=== PATIENT | female | born 1980 | race Caucasian/White ===

== ENCOUNTER 2018-05-22 15:22 | Inpatient (IN) ==
[2018-05-22] MEDS ORDERED: NS 1,000 ML IV ONE (17:58)
--- NOTE | 2018-05-22 18:02 | Emergency Department Report ---
SOB HPI - General Chief Complaint: Shortness of Breath/Dyspnea Stated Complaint: can't catch breath Time Seen by Provider: 05/22/18 17:49 Source: patient Mode of arrival: ambulatory Limitations: no limitations - History of Present Illness Pt has 4 day history of SOB with exertion, but no CAD, COPD/asthma. Pt was seen in [facility] and had blood test that showed she "is not anemic." Patient was given a breathing treatment, despite having no wheezes or difficulty moving air. Patient had no relief. Patient saw her primary physician earlier today, who is quite concerned about pulmonary embolism. It [place] patient was told that she was constipated, despite having normal bowel movements. She is medications to help with constipation, has had positive bowel movements, no relief. - Related Data Home Medications Medication Instructions Recorded Confirmed Empagliflozin [Jardiance] 25 mg PO DAILY 05/22/18 05/22/18 Metformin [Glucophage] 1,000 mg PO HS 05/22/18 05/22/18 Multivit-Min/Iron/Folic/Htd499 1 tab PO DAILY 05/22/18 05/22/18 [Hair, Skin and Nails Tablet] Multivitamin [One Daily 1 tab PO DAILY 05/22/18 05/22/18 Multivitamin] Ondansetron HCl [Zofran] 4 mg PO Q6H PRN 05/22/18 05/22/18 Allergies Allergy/AdvReac Type Severity Reaction Status Date / Time No Known Allergies Allergy Verified 05/22/18 15:56 Review of Systems All systems: reviewed and negative except as stated [facility] Medical History (Last Reviewed 03/23/18 @ 14:46 by REYNALDO Rodas) Diabetes mellitus (Chronic Medical) Eczema (Chronic Medical) DJD (degenerative joint disease) (Chronic Medical) Diabetes (Chronic Medical) Surgical History: * Section. *Cholecystectomy. *Left Breast Biopsy ( benign). *EGD Family History: Family History (Last Reviewed 03/23/18 @ 14:46 by REYNALDO Rodas) Father Dialysis patient Heart problem Diabetes Maternal Grandfather Hyperlipidemia Heart attack High blood pressure Diabetes - Social History Smoking status: Former smoker second hand exposure: Yes Substance use type: does not use, former substance user, marijuana Alcohol intake: never Alcohol intake frequency: does not drink Housing: house Household members: children Current occupational status: student Physical Exam - Limitations Limitations: no limitations - General General appearance: alert, other (patient has normal blood pressure, normal temperature, normal O2 saturations on room air. Patient is mildly tachycardic and has slight dry mouth.) - Normal Exams: Head:: Normocephalic without trauma Eyes:: Pupils are PERRLA w/ EOMI, No scleral icterus, irritation, or foreign bodies noted ENMT:: No facial trauma, nasal exudates, pharyngeal erythema, or exudates are noted Neck:: Full range of motion, without adenopathy, JVD, bruits or thyromegaly Chest/Respirations:: Clear all franklin, with good airflow, and symmetry bilaterally Cardiovascular:: Regular rate and rhythm, without murmur or gallop, Pulses 2+ all extremities, capillary refill, <2 seconds all extremities Abdomen:: Bowel sounds positive, soft, non-tender, non-distended, no hepatosplenomegaly, masses or bruits noted Lymphatic:: No lymphadenopathy, or lymphedema noted Musculoskeletal:: No tenderness, or deformity noted, good range of motion, all extremities Integumentary:: No rashes, hives, or bruising noted, hair and nails, without abnormality Neurological:: Patient is alert, and oriented, cranial nerves, motor/sensory/ cerebellar, exams w/o gross deficits, to observation Psychiatric:: Patient exhibits, appropriate attention, emotion and affect Course Vital Signs Temperature 97.8 F 05/22/18 15:25 Pulse Rate 114 H 05/22/18 15:25 Respiratory Rate 20 05/22/18 15:25 Blood Pressure 138/80 05/22/18 15:25 Pulse Oximetry 98 05/22/18 15:25 Temperature 97.6 F 05/22/18 17:50 Pulse Rate 109 H 05/22/18 17:50 Respiratory Rate 20 05/22/18 17:50 Blood Pressure 157/89 H 05/22/18 17:50 Pulse Oximetry 100 05/22/18 17:50 Shortness of Breath/Dyspnea - [facility] Narrative Medical decision making narrative: UA/P - concentrated with ketones 3+ EKG - Sinus tach without ischemia, ectopy, or infarction Troponin - n ProBNP - n Chest CT/PE - CBC - hemoconcentrated, otherwise normal CMP -minor electrolyte abnormalities consistent with dehydration/volume depletion - with abnormally low CO2 of 6. Will check ABG ABG - acidosis with pH 7.189, PCO2 15.4, and HCO3 5.9. Case is discussed with total hospitalist Dr. Perez We will get plasma lactate and beta hydroxybutyrate levels, and will discuss the patient further Lactate is pending, but the patient's BHB significantly elevated at 5.7. We will admit the patient inpatient to ICU for ketoacidosis and dehydration - Lab Data Result diagrams: 05/22/18 18:25 05/22/18 18:25 Disposition Clinical Impression: Ketoacidosis, Dehydration Disposition: [address] [facility] Acute Care Condition: Improved Prescriptions: No Action Ondansetron HCl [Zofran] 4 mg PO Q6H PRN PRN Reason: Nausea Metformin [Glucophage] 1,000 mg PO HS Multivitamin [One Daily Multivitamin] 1 tab PO DAILY Multivit-Min/Iron/Folic/Fgy530 [Hair, Skin and Nails Tablet] 1 tab PO DAILY Empagliflozin [Jardiance] 25 mg PO DAILY Referrals: Willy Mane DO [Primary Care Provider] - - Seen By: physician
[2018-05-22] MEDS ORDERED: SALINE FLUSH 10ml SYRINGE ONE (18:42)
[2018-05-22] MEDS ORDERED: IOHEXOL 350mg/ml 75ml INJECTION ONE (18:42)
[2018-05-22] MEDS ORDERED: KETOROLAC 30 MG/ML INJECTION IVP ONE (19:57)
[2018-05-22] MEDS ORDERED: NS 1,000 ML IV SCH (20:45)
[2018-05-22] MEDS ORDERED: INSULIN ASPART 100unit/ml INJECTION SQ PRN (21:52)
[2018-05-22] MEDS ORDERED: D5-1/2NS 1,000 ML IV SCH (21:52)
[2018-05-22] MEDS ORDERED: ACETAMINOPHEN 650 MG SUPPOSITORY PR PRN (21:52)
[2018-05-22] MEDS ORDERED: MORPHINE SULFATE 2mg INJECTION IVP PRN (21:52)
[2018-05-22] MEDS ORDERED: DEXTROSE 50% SYRINGE 50ml (1 AMP) IVP PRN (21:52)
[2018-05-22] MEDS: PANTOPRAZOLE 40 MG INJECTION IVP SCH (22:00)
[2018-05-22] MEDS: HYDROCODONE/APAP 5mg/325mg TABLET PO PRN (22:00)
[2018-05-22 22:04] VITALS: BMI 35.2
[2018-05-22] MEDS ORDERED: D5-1/2NS with KCL 20mEq 1,000 ML IV SCH (23:00)
[2018-05-22] MEDS ORDERED: ALBUTEROL/IPRATROPIUM 2.5mg-0.5mg/3ml NEB AEROSOL PRN (23:50)
[2018-05-23] MEDS ORDERED: MAG-AL + SIM ORAL LIQUID 30ml PO PRN (00:31)
[2018-05-23] MEDS ORDERED: INSULIN REGULAR, HUMAN 100 UNIT in NS 100 ML IV PRN (02:41)
[2018-05-23] MEDS ORDERED: SODIUM BICARBONATE 100 MEQ in D5W 1,000 ML IV SCH (02:45)
--- NOTE | 2018-05-23 04:55 | History & Physical Report ---
History of Present Illness Date: 05/24/18 Chief complaint: shortness of breath HPI: this is a 38 y/o female with dm 2 and eczema. She has a history of morbid obesity and over the past years has gone through two stages of loosing almost 100#. Most recently over the past 2 weeks she has been observing a very low carbohydrate diet. She has noted over the past 4 days that she has increased dyspnea. With any activity she gets remarkably tired. She presented to a local urgent care center in [facility] a couple of days ago and the workup was unremakable. (included EKG , labs, and breathing tx). The pateint continued to be short of breath and presents to the ED tonight. The ED did a CT angio of the chest that was neg for acute disease. Labs done demonstrated a remarkable gap metabolic acidosis. The serum BHBA signficantly elevated. Blood sugar was essentially normal. It would appear that the patient's low carbohydrate diet has ppt a starvation ketoacidosis. She will be admitted into the ICU for managment Review of Systems Review of systems: no headache, no fever, chills or sweats, no neck or jaw pain, short of breath without ortopnea, no pnd, the patient has no abodmen pain, slight nausea, no emesis, no change in bm, no focal neuro complaints, no skin rashes, 12 point ROS otherwise negative except for outlined above. Past Medical History Medical History: Medical History (Last Reviewed 03/23/18 @ 14:46 by REYNALDO Rodas) Diabetes mellitus (Chronic) Eczema (Chronic) DJD (degenerative joint disease) Diabetes Surgical History: * Section. *Cholecystectomy. *Left Breast Biopsy ( benign). *EGD. Cholesystectomy Family History: Family History (Last Reviewed 03/23/18 @ 14:46 by REYNALDO Rodas) Father Dialysis patient Heart problem Diabetes Maternal Grandfather Hyperlipidemia Heart attack High blood pressure Diabetes Family History: As Above - Social History Smoking status: Former smoker Medications Home Medications Medication Instructions Recorded Confirmed Type Empagliflozin [Jardiance] 25 mg PO DAILY 05/22/18 05/22/18 History Metformin [Glucophage] 1,000 mg PO HS 05/22/18 05/22/18 History Multivit-Min/Iron/Folic/Qbn508 1 tab PO DAILY 05/22/18 05/22/18 History [Hair, Skin and Nails Tablet] Multivitamin [One Daily 1 tab PO DAILY 05/22/18 05/22/18 History Multivitamin] Ondansetron HCl [Zofran] 4 mg PO Q6H PRN 05/22/18 05/22/18 History Allergies Allergy/AdvReac Type Severity Reaction Status Date / Time No Known Allergies Allergy Verified 05/22/18 15:56 Exam Vital Signs: Temperature 97.6 F 05/22/18 23:02 Pulse Rate 90 05/23/18 04:00 Respiratory Rate 15 05/23/18 02:00 Blood Pressure 101/61 05/23/18 00:00 Pulse Oximetry 97 05/23/18 04:46 Telemetry Rhythm: Sinus Rhythm Height/Weight/BMI: Height 1.71 m Weight 103.6 kg Body Mass Index 35.2 - Constitutional Present: moderate distress - Routine HEENT Exam Head: Present: normocephalic, atraumatic Eye: Present: EOMI ENT: Present: mucous membranes dry - Routine Neck Exam Present: supple - Routine Respiratory Exam Present: CTA bilaterally - Routine Cardiovascular Exam Present: RRR, no murmur - Routine Abdominal Exam Present: soft, normoactive bowel sounds, non distended, non tender - Routine Extremities Exam Present: no edema, full ROM - Routine Skin Exam Present: intact, dry - Routine Neurological Exam Present: alert, oriented X3, moving all extremities, normal tone, vision grossly intact, hearing grossly intact, normal speech Results - Labs CBC & Chem 7: 05/23/18 05:03 05/24/18 06:01 Labs: reviwed and will be discussed below CT PE without acute process - ECG Data Tracing #1 sinus, poor r wave progression, right axis deviation. low voltge Assessment and Plan Assessment and Plan: 1. starvation ketoacidosis acute POA: started d5 1/2 ns with 20 kcl. initally with serial bmp. serum hco3 acutally worsened. elected to start a HcO3 gtt after ABG demonstrated pH less than 7.2. Patient is not responding well to glucse and fluids and will go ahead and add low dose insulin gtt. 2. DM2 chronic POA: pt is not in DKA. will monitor sugars with correctional plan. glucaphage held 2/2 iv contrast 3. DVT ppx SCD, lovenox 4. gastric ppx : ppi DVT Prophylaxis: SCD's GI Prophylaxis: Protonix Resuscitation Status: Full Code - Time spent with patient Time with patient PN: 50 minutes - Physician Narrative Narrative: Date: 05/23/18 Time: 446 Seen and examined patient on same day as the above note. Agree with history, physical, assessment and plan. Comprehensive physical findings correlate to the above note. HPI: type II diabetic woman with 4 days worsening dyspnea, dizziness, nausea, lightheadedness and fatigue. No symptoms like this prior. No medication changes. She is dieting on a almost totally abstinent carbohydrate diet. She is diabetic type II. She's never had an episode like this before PMH/SH/FH: as per above. She has had her gallbladder removed ROS: no further information from 10 system review Exam: Gen.:no apparent distress, obese and pleasant HEENT: normocephalic atraumatic, oral mucosa moderately dry neck: no lymphadenopathy no jugular venous distention respiratory: there to auscultation bilaterally with good excursion cardiovascular: cardiovascular S1 S2 no adventitious murmurs rubs or gallops abdomen/GI: no appreciable tenderness and any of the 4 quadrants. Bowel sounds are good extremities: good peripheral perfusion with no edema skin/integument: no significant injuries or edema neuro: alert and oriented times 3. No focal deficits appreciable psych: mood and affect or appropriate Labs: reviewed and noting the closing metabolic anion gap imaging: no acute processes assessment and plan: metabolic acidosis: not a true diabetic ketoacidosis and the strictest sense. I' ve discussed this with Dr. Perez and I agree that this is a very atypical presentation of a will topic diet in a type II diabetic augmenting a metabolic anion gap. At this time where discontinuing the insulin drip as well as the D5 fluids but may restart if required Diabetes type II. Transition the patient back to an oral diet but will press reasonable amount of carbohydrates at this time and observe her response obesity: patient is very conscientiously dieting and for this reason we have requested dietary to work on education Documented on Dragon speech to text. Efforts to correct speech recognition errors performed, but variation may exist Hospital Course Summary Disclaimer: The visit summary below is not to be considered part of the above Progress Note.
[2018-05-23] MEDS: SODIUM BICARBONATE 100 MEQ, POTASSIUM CHLORIDE INJ 20 MEQ in D5W 1,000 ML IV SCH ×2 (06:53→14:06)
[2018-05-23] MEDS: HYDROCODONE/APAP 5mg/325mg TABLET PO PRN (07:48)
--- NOTE | 2018-05-23 07:56 | CT Scan Report ---
Indication: SOB with exertion, tachycardia PROCEDURE: CT angio pulm emboli: Encounter: Initial Comparison: None Technique: Axial CT pulmonary angiographic phase images were performed through the chest after the administration of intravenous contrast. Coronal and Sagittal MIP reconstructed images were created and reviewed. Automated Exposure Control and Iterative Reconstruction dose reducing techniques were utilized. Contrast: Omnipaque 350 70 mL Findings: Pulmonary arteries: Exam is diagnostic to the subsegmental pulmonary arterial level. No filling defects identified to suggest a pulmonary embolus. Other findings: Lungs are clear. No pneumonia, pleural effusion or pneumothorax. The central airways are patent. No axillary or mediastinal adenopathy. Heart size is normal. No pericardial effusion. Upper abdomen is negative for acute process. Impression: Normal exam. There is a preliminary report by [facility] radiologic. .
[2018-05-23] MEDS: ENOXAPARIN 40 MG/0.4 ML INJECTION SQ SCH (08:22)
[2018-05-23] MEDS ORDERED: POLYETHYL GLYCOL 3350 17gm PACKET PO SCH (09:00)
[2018-05-23] MEDS ORDERED: ACETAMINOPHEN 325 MG TABLET PO PRN (11:42)
[2018-05-23] MEDS ORDERED: KETOROLAC 15 MG/ML INJECTION IM PRN (13:03)
[2018-05-23] MEDS ORDERED: BISACODYL 10 MG SUPPOSITORY RECTALLY PRN (21:18)
[2018-05-23] MEDS: PANTOPRAZOLE 40 MG INJECTION IVP SCH (21:24)
[2018-05-24] MEDS ORDERED: MAGNESIUM CITRATE 296ml PO ONE (07:13)
[2018-05-24] MEDS: ENOXAPARIN 40 MG/0.4 ML INJECTION SQ SCH (09:05)
[2018-05-24] MEDS: EMPAGLIFLOZIN 10 MG TABLET PO SCH ×2 (09:06)
[2018-05-24] MEDS: POLYETHYL GLYCOL 3350 17gm PACKET PO SCH ×2 (09:06→21:29)
--- NOTE | 2018-05-24 09:48 | XRay Report ---
Indication: abd pain/constipation PROCEDURE: XR KUB: Encounter: Initial Comparison: None Findings: The bowel gas pattern is nonobstructive and nonspecific. Gas is seen in nondilated small and large bowel to the level of the rectum. Large amount of stool is seen throughout the colon. The bony structures are grossly unremarkable. Impression: Nonobstructive nonspecific bowel gas pattern. Increased colonic stool burden. .
[2018-05-24] MEDS: ONDANSETRON 4 MG/2 ML INJECTION IVP PRN (10:17)
[2018-05-24] MEDS ORDERED: FLEET PHOSPHO - SODA ENEMA 133ml PR PRN (11:37)
--- NOTE | 2018-05-24 14:20 | Consultation ---
DATE OF CONSULT 05/24/2018 REASON FOR CONSULTATION Ketoacidosis. HISTORY OF PRESENT ILLNESS Ms. Jarvis is a 38-year-old female with a 22-year history of type 2 diabetes mellitus that has been in poor control. She has been trying very hard to lose weight. She has succeeded in losing 100 pounds in the past few years. Most recently she started on a ketogenic diet several weeks ago. She discontinued taking some of her medication at that time but continued to take metformin 1000 mg b.i.d. and Jardiance 25 mg daily. She came to the emergency department because of shortness of breath that was getting progressively worse along with polyuria and polydipsia. In the emergency department she was found to be in ketoacidosis with an anion gap of 22 although her blood sugar was not elevated. She was thought to have had starvation ketoacidosis and was admitted to the CCU. She was treated briefly with some IV insulin but mostly with IV fluids. Her ketoacidosis resolved yesterday and her anion gap dropped to 14. Her metformin and Jardiance had been discontinued upon her hospitalization. This morning her anion gap is still only 15 although her CO2 is only 12. Her nausea and vomiting have been improved. ALLERGIES None known. PAST MEDICAL HISTORY Remarkable for: 1. Type 2 diabetes mellitus. 2. Polycystic ovarian syndrome. 3. Hyperlipidemia. 4. She did have diabetic ketoacidosis when she was younger but not in quite some time. 5. She is status post and tubal ligation. She checks her blood sugars six times per day and usually runs over 200. FAMILY HISTORY Remarkable for diabetes mellitus, CHF, chronic kidney disease, hypertension and diverticulosis. SOCIAL HISTORY The patient does not smoke tobacco nor drink alcohol. REVIEW OF SYSTEMS Negative for fever or chills. No retinopathy. She has some dysphagia swallowing bread. Reports dry mouth. She has a pruritic rash on her arms and legs for several days. She has had some nausea and vomiting which is better now. She denies edema. She has had nocturia and polyuria. She notes fatigue and some weakness. She has had hirsutism. She denies any temperature intolerance. PHYSICAL EXAMINATION VITAL SIGNS: Afebrile. Blood pressure 123/76, pulse 95. GENERAL: Obese female, alert, oriented and in no acute distress. HEENT: Unremarkable. Oral mucosa is moist. SKIN: Shows a maculopapular red rash on extremities. NECK: Without thyromegaly. LUNGS: Clear. HEART: Regular rate and rhythm without murmur. ABDOMEN: Soft, nontender with normal bowel sounds. EXTREMITIES: Show trace pedal edema. Peripheral pulses are 2+ symmetrically. LABS Sodium 144, potassium 3.8, chloride 117, CO2 12, BUN 11, creatinine 0.5, glucose 116. TSH 0.87. ASSESSMENT 1. Diabetic ketoacidosis, mostly resolved. The patient was on a ketogenic diet which can create some acidosis although not usually ketoacidosis. However , while taking metformin the acidosis can be worsened. This did result in ketoacidosis but was not apparent due to the relatively normal glucose level. However, this is because Jardiance was masking hyperglycemia by allowing glucose to escape in the urine. Thus we have ketoacidosis due to the use of metformin while on a ketogenic diet masked by Jardiance. With the anion gap having closed to 15 or less her normal kidney function should take care of the remaining hyperchloremic acidosis which is frequently seen in the treatment phase of DKA. As long as she remains off metformin she should be able to continue controlling hyperglycemia with Jardiance and a little better balanced diet. 2. Type 2 diabetes mellitus, poorly controlled by history. Clearly she will benefit by further weight loss, although a ketogenic diet may not be her best alternative for this. She has been seen by the dietitian who has discussed with her adding some carbohydrate back into the balance of her diet. RECOMMENDATIONS I have spoken at length with the patient this morning regarding the avoidance of metformin while on a ketogenic diet. She will resume taking Jardiance. She should balance her diet better with some carbohydrate. If additional medication is needed to control her glucose until she loses enough weight for her insulin sensitivity to allow good control with Jardiance, then basal insulin would be an appropriate addition. Thank you very much for asking my assistance on this interesting case. I will continue to follow the patient with you while she remains in the hospital. CRAIG
[2018-05-24] MEDS: IBUPROFEN 600 MG TABLET PO PRN ×2 (14:44→21:26)
[2018-05-24] MEDS ORDERED: LACTULOSE 20 GM/30 ML ORAL LIQUID PO PRN (15:30)
[2018-05-24] MEDS ORDERED: INSULIN REGULAR, HUMAN 100 UNIT in NS 100 ML IV PRN (16:20)
--- NOTE | 2018-05-24 17:05 | Progress Note ---
- Date 05/24/18 Subjective: Ana was seen this morning at which time she described feeling slightly winded with ongoing nausea and abdominal cramping due to constipation. She reports her last bowel movement was more than a week ago other than a small amount of liquid stool on the date of admission. She denies dysuria and is voiding well. She's had no fever or chills. She denied headache. She spoke with the dietitian yesterday and indicated intent to increase carbohydrates in her diet to minimize ketosis. Objective Vital signs: Temperature 97.0 F 05/24/18 15:00 Pulse Rate 90 05/24/18 15:00 Respiratory Rate 20 05/24/18 12:00 Blood Pressure 123/76 05/24/18 11:36 Pulse Oximetry 98 05/24/18 15:00 I/O 3284/5300 NAD, alert, fluent speech Conjugate gaze, conjunctiva clear, sclera anicteric, oropharynx clear Respirations nonlabored, good airflow, breath sounds clear Regular rhythm, S1-S2 Abdomen soft, slightly distended and mild diffuse tenderness, bowel sounds present Extremities without edema Skin without rash or ulceration MAEW Rhythm: Normal Sinus Rhythm Height/Weight/BMI: Height 1.71 m Weight 103.646 kg Body Mass Index 35.2 Results - Labs CBC & Chem 7: 05/23/18 05:03 05/24/18 14:47 Labs: Earlier today electrolytes notable for chloride 117 and bicarbonate 12; blood sugars have ranged from 117-189 over the past 24 hours - ABG Interpretation ABG results: 05/22/18 05/23/18 05/23/18 19:34 02:48 07:02 ABG pH 7.189 L* 7.166 L* 7.269 L ABG pCO2 15 L* 21 L* 24 L ABG pO2 113.8 H 101.7 H 100.9 H ABG HCO3 5.9 L 7.5 L 10.8 L ABG Total CO2 6.3 L 8.1 L 11.5 L ABG O2 Saturation 97.4 96.1 97.1 ABG Base Excess -19.8 L -19.0 L -14.1 L - Imaging and Cardiology Abdominal x-ray Status: image reviewed by me (KUB with nonspecific bowel gas pattern and increased stool content throughout the colon) Assessment and Plan (1) Ketoacidosis Current visit: Yes Status: Acute (2) Diabetes mellitus Current visit: No Status: Chronic Assessment and Plan: Impression: Diabetic ketoacidosis Diabetes mellitus, type II-A1c 7.4% 05/15/18 Nausea/vomiting Dehydration Obstipation Hypophosphatemia Polycystic ovarian syndrome Hyperlipidemia Plan: Dr. Sagastume consulted this morning; I spoke with him after he evaluated the patient described complex development of DKA due to development of ketoacidosis on ketotic diet in conjunction with metformin use with Jardiance precluding development of hyperglycemia due to hyperglucoseurea. Acidosis improved initially with insulin drip but bicarbonate is dropping again the course of the day today and insulin drip is being resumed with standard DKA orders. By mouth meds will be continued-confirmed with Dr. Sagastume. Significant obstipation over the past week reported, may in part be due to dehydration with increased urine output. Continue fiber supplement, Dulcolax suppository tried earlier today with minimal result, fleets enema available for prn use; lactulose being started as needed. Repeat labs per DKA protocol at 8 PM tonight. - Physician Narrative Narrative: Date: 05/24/18 Time: 1702 Hospital Course Summary Disclaimer: The visit summary below is not to be considered part of the above Progress Note. Hospital Course: 05/23/18 Admitted with ketoacidosis due to ketotic diet/diabetes. Initially treated with fluids/bicarbonate without improvement and subsequently converted to insulin drip and DKA protocol. Late in the day able to transition to oral diet with increased carbohydrate content. Dietary consult initiated. 05/24/18 Dr. Sagastume consulted this morning; I spoke with him after he evaluated the patient described complex development of DKA due to development of ketoacidosis on ketotic diet in conjunction with metformin use with Jardiance precluding development of hyperglycemia due to hyperglucoseurea. Acidosis improved initially with insulin drip but bicarbonate is dropping again the course of the day today and insulin drip is being resumed with standard DKA orders. By mouth meds will be continued-confirmed with Dr. Sagastume. Significant obstipation over the past week reported, may in part be due to dehydration with increased urine output. Continue fiber supplement, Dulcolax suppository tried earlier today with minimal result, fleets enema available for prn use; lactulose being started as needed. Repeat labs per DKA protocol at 8 PM tonight.
[2018-05-24] MEDS: POTASSIUM CHLORIDE INJ 20 MEQ, POTASSIUM PHOSPHATE (mEq) 20 MEQ in D5-1/2NS 1,000 ML IV SCH (17:09)
[2018-05-24] MEDS: HYDROCODONE/APAP 5mg/325mg TABLET PO PRN (18:34)
[2018-05-25] MEDS: POTASSIUM CHLORIDE INJ 20 MEQ, POTASSIUM PHOSPHATE (mEq) 20 MEQ in D5-1/2NS 1,000 ML IV SCH ×2 (00:09→06:23)
[2018-05-25] MEDS: HYDROCODONE/APAP 5mg/325mg TABLET PO PRN ×2 (02:02→10:11)
[2018-05-25] MEDS: ONDANSETRON 4 MG/2 ML INJECTION IVP PRN (05:17)
[2018-05-25] MEDS: IBUPROFEN 600 MG TABLET PO PRN ×2 (05:58→13:21)
[2018-05-25 07:41] VITALS: TEMP 97.8
--- NOTE | 2018-05-25 07:54 | Endocrinology Progress Note ---
Subjective Principal diagnosis: Type 2 diabetes mellitus Interval history: Still uncomfortable with no BM despite lactulose and mag citrate. Was able to come off IV insulin drip several hours ago after receiving it overnight for lapsing back into DKA with bicarb back down to 8. Exam Vital signs: Temperature 97.8 F 05/25/18 07:40 Pulse Rate 71 05/25/18 04:00 Respiratory Rate 16 05/25/18 04:00 Blood Pressure 114/72 05/24/18 23:07 Pulse Oximetry 96 05/25/18 04:00 Inpatient Medications: Generic Name Dose Route Start Last Admin Trade Name Freq PRN Reason Stop Dose Admin Acetaminophen 500 mg 05/22/18 21:52 Tylenol SD Q5H PRN Pain Acetaminophen 650 mg 05/23/18 11:42 05/23/18 11:45 Tylenol PO 650 mg Q6H PRN Administration Pain Acetaminophen/Butalbital/Caffeine 1 each 05/23/18 13:03 05/23/18 14:06 Fioricet PO 1 each Q4H PRN Administration Headache Hydrocodone Bitart/Acetaminophen 1 tab 05/22/18 21:52 05/25/18 02:02 [place] 5/325 PO 1 tab Q6H PRN Administration Pain Al Hydroxide/Mg Hydroxide 30 ml 05/23/18 00:31 05/23/18 00:45 Maalox Plus PO 30 ml Q6H PRN Administration Indigestion Albuterol/Ipratropium 3 ml 05/22/18 23:50 Duoneb AEROSOL Q2H PRN Bisacodyl 10 mg 05/23/18 21:18 05/23/18 21:24 Dulcolax RECTALLY 10 mg DAILY PRN Administration Constipation Dextrose 25 ml 05/22/18 21:52 D50%W IVP PRN PRN Hypoglycemia Empagliflozin 25 mg 05/24/18 08:00 05/24/18 09:06 Jardiance PO 25 mg DAILY ENEIDA Administration Enoxaparin Sodium 40 mg 05/23/18 09:00 05/24/18 09:05 Lovenox SQ 40 mg DAILY ENEIDA Administration Insulin Human Regular 100 unit 101 mls @ 10.46 mls/hr 05/24/18 16:20 07:10 / Sodium Chloride IV Infused .Q9H40M PRN Titration Protocol 0.1 UNIT/KG/HR Ibuprofen 600 mg 05/24/18 14:40 05/25/18 05:58 Motrin PO 600 mg Q6H PRN Administration Pain Lactulose 20 gm 05/24/18 15:30 05/24/18 18:24 Lactulose PO 20 gm QID PRN Administration Constipation Morphine Sulfate 1 - 2 mg 05/22/18 21:52 Morphine Sulf 2 Mg Inj IVP Q2H PRN Pain Ondansetron HCl 4 mg 05/22/18 21:52 05/25/18 05:17 Zofran IVP 4 mg Q6H PRN Administration Nausea &/or vomiting Polyethylene Glycol 17 gm 05/24/18 09:00 05/24/18 21:29 Miralax PO Not Given BID ENEIDA Potassium Chloride 20 meq 05/23/18 08:00 05/24/18 18:34 K-Dur 20 Meq Tablet PO Not Given BIDWM ENEIDA Sodium Phosphate 1 enema 05/24/18 11:37 Fleet Enema SD DAILY PRN Discontinued Medications Generic Name Dose Route Start Last Admin Trade Name Freq PRN Reason Stop Dose Admin Sodium Chloride 1,000 mls @ 999.9 mls/hr 05/22/18 17:58 05/22/18 19:50 Normal Saline IV 05/22/18 18:57 Infused .Q1H ONE Infusion Sodium Chloride 1,000 mls @ 150 mls/hr 05/22/18 20:45 05/22/18 21:29 Normal Saline IV Infused .Q6H40M ENEIDA Infusion Dextrose/Sodium Chloride 1,000 mls @ 125 mls/hr 05/22/18 21:52 05/22/18 22:59 D5-1/2ns IV Infused .Q8H ENEIDA Infusion Potassium Chloride/Dextrose/Sod Cl 1,000 mls @ 125 mls/hr 05/22/18 23:00 03:10 D5-1/2ns With Kcl 20meq Premix IV Infused .Q8H ENEIDA Infusion Sodium Bicarbonate 100 meq/ 1,100 mls @ 150 mls/hr 05/23/18 02:45 05/23/18 06 :53 Dextrose IV Infused .Q7H20M ENEIDA Infusion Insulin Human Regular 100 unit 101 mls @ 10.46 mls/hr 05/23/18 02:41 14:53 / Sodium Chloride IV Infused .Q9H40M PRN Titration Protocol 0.1 UNIT/KG/HR Sodium Bicarbonate 100 meq/ 1,110 mls @ 150 mls/hr 05/23/18 06:00 05/23/18 14 :06 Potassium Chloride 20 meq/ IV Not Given Dextrose .Q7H24M ENEIDA Potassium Chloride 20 meq/ 1,014.5455 mls @ 150 mls/hr 05/24/18 16:30 07:10 Potassium Phosphate 20 meq/ IV Infused Dextrose/Sodium Chloride .Q6H46M ENEIDA Infusion Insulin Aspart 1 - 5 unit 05/22/18 21:52 Novolog SQ SS PRN Hyperglycemia Protocol Ketorolac Tromethamine 30 mg 05/22/18 19:57 05/22/18 19:57 Toradol Inj IVP 05/22/18 19:58 30 mg O ONE Administration Ketorolac Tromethamine 15 mg 05/23/18 13:03 Toradol Inj IM 05/28/18 13:04 Q6H PRN Pain Magnesium Citrate 296 ml 05/24/18 07:13 05/24/18 09:05 Citrate Of Magnesia PO 05/24/18 07:14 296 ml ONCE ONE Administration Pantoprazole Sodium 40 mg 05/22/18 21:52 05/23/18 21:24 Protonix Iv IVP 40 mg Q24H ENEIDA Administration Polyethylene Glycol 17 gm 05/23/18 09:00 05/23/18 08:23 Miralax PO Not Given DAILY ENEIDA - Constitutional mild distress - Routine HEENT Exam Head: Present: normocephalic, atraumatic Eye: Present: EOMI, PERRL ENT: Present: mucous membranes moist - Routine Neck Exam Absent: thyromegaly - Routine Respiratory Exam Absent: dyspnea - Routine Cardiovascular Exam Present: RRR - Routine Abdominal Exam Present: soft, normoactive bowel sounds. Absent: tenderness - Routine Extremities Exam Absent: cyanosis, edema - Routine Skin Exam Present: dry, warm - Routine Neurological Exam Present: alert, oriented X3 - Routine Psychiatric Exam Present: normal affect, normal thought process, good insight, good judgment - Additional findings Additional findings: Laboratory Tests 05/25/18 06:06 Sodium 142 Potassium 3.8 Chloride 114 H Carbon Dioxide 17 L BUN 7.0 Creatinine 0.4 L Glucose 100 Assessment and Plan (1) DKA (diabetic ketoacidoses) Current visit: Yes Status: Resolved Anion gap has closed and bicarb is up to normal now. Insulin is no longer required. Should resume carb consistent diet while we observe glucose response. If necessary, Jardiance can be resumed. Continue to avoid metformin. (2) Type 2 diabetes mellitus without complications Current visit: Yes Status: Chronic Currently controlled well. Since she is going to still be trying to lose more weight we should only use weight negative antidiabetic medication, such as Jardiance, and only if hyperglycemia warrants it. (3) Constipation Current visit: Yes Status: Acute Resistant to treatment thus far. Further GI evaluation is indicated to rule out obstruction, motility disorder, etc.
[2018-05-25] MEDS: ENOXAPARIN 40 MG/0.4 ML INJECTION SQ SCH (09:30)
[2018-05-25] MEDS: POLYETHYL GLYCOL 3350 17gm PACKET PO SCH (09:31)
[2018-05-25] MEDS ORDERED: MAGNESIUM CITRATE 296ml PO ONE (12:51)
[2018-05-25 13:12] VITALS: BP 111/74
[2018-05-25] MEDS ORDERED: INSULIN ASPART 100unit/ml INJECTION SQ ONE (14:38)
--- NOTE | 2018-05-25 17:10 | Progress Note ---
- Date 05/25/18 Subjective: Ana reports minor nausea overnight with several very small bowel movements after Dulcolax and magnesium citrate but she continues to have abdominal cramping both due to obstipation and onset of menses yesterday. She denies dyspnea, palpitations, or fever. She is voiding without difficulty. She has chronic constipation but nothing like it's been for the last 10 days. Last colonoscopy was greater than 10 years ago and there is no family history of colon cancer. Insulin drip was discontinued early this morning and blood sugars have been modestly elevated requiring subcutaneous insulin at least once today. Objective Vital signs: Temperature 97.8 F 05/25/18 07:40 Pulse Rate 88 05/25/18 14:45 Respiratory Rate 27 H 05/25/18 14:45 Blood Pressure 111/74 05/25/18 11:38 Pulse Oximetry 100 05/25/18 14:45 NAD, alert Conjunctiva clear, sclera anicteric Respirations nonlabored, good airflow progressive clear Regular rhythm, S1-S2 Abdomen soft, mild generalized tenderness without guarding, bowel sounds present Extremities without edema Neuro-moving all extremities well Rhythm: Normal Sinus Rhythm Height/Weight/BMI: Height 1.71 m Weight 105 kg Body Mass Index 35.2 Results - Labs CBC & Chem 7: 05/25/18 02:13 05/25/18 14:01 Labs: Initial bicarbonate this morning was 17 with fasting blood sugar of 106. - ABG Interpretation ABG results: 05/22/18 05/23/18 05/23/18 19:34 02:48 07:02 ABG pH 7.189 L* 7.166 L* 7.269 L ABG pCO2 15 L* 21 L* 24 L ABG pO2 113.8 H 101.7 H 100.9 H ABG HCO3 5.9 L 7.5 L 10.8 L ABG Total CO2 6.3 L 8.1 L 11.5 L ABG O2 Saturation 97.4 96.1 97.1 ABG Base Excess -19.8 L -19.0 L -14.1 L Assessment and Plan (1) Ketoacidosis Current visit: Yes Status: Acute (2) Diabetes mellitus Current visit: No Status: Chronic Assessment and Plan: Impression: Diabetic ketoacidosis Diabetes mellitus, type II-A1c 7.4% 05/15/18 Nausea/vomiting Dehydration Obstipation Hypophosphatemia Polycystic ovarian syndrome Hyperlipidemia Plan: Insulin drip resumed yesterday after bicarbonate dropped; improved rapidly overnight and insulin again discontinued this morning. Bicarbonate down slightly this afternoon-continue to monitor closely. Pedal electrolytes in a.m. to clarify if bicarbonate is stable. Continue bowel regimen; if no improvement overnight will move to Gastrografin enema to exclude mass. Magnesium citrate being redosed today per patient request. DVT Prophylaxis: Lovenox Resuscitation Status: Full Code - Physician Narrative Narrative: Date: 05/25/18 Time: 1707 Hospital Course Summary Disclaimer: The visit summary below is not to be considered part of the above Progress Note. Hospital Course: 05/23/18 Admitted with ketoacidosis due to ketotic diet/diabetes. Initially treated with fluids/bicarbonate without improvement and subsequently converted to insulin drip and DKA protocol. Late in the day able to transition to oral diet with increased carbohydrate content. Dietary consult initiated. 05/24/18 Dr. Sagastume consulted this morning; I spoke with him after he evaluated the patient described complex development of DKA due to development of ketoacidosis on ketotic diet in conjunction with metformin use with Jardiance precluding development of hyperglycemia due to hyperglucoseurea. Acidosis improved initially with insulin drip but bicarbonate is dropping again the course of the day today and insulin drip is being resumed with standard DKA orders. By mouth meds will be continued-confirmed with Dr. Sagastume. Significant obstipation over the past week reported, may in part be due to dehydration with increased urine output. Continue fiber supplement, Dulcolax suppository tried earlier today with minimal result, fleets enema available for prn use; lactulose being started as needed. Repeat labs per DKA protocol at 8 PM tonight. 05/25/18 Insulin drip resumed yesterday after bicarbonate dropped; improved rapidly overnight and insulin again discontinued this morning. Bicarbonate down slightly this afternoon-continue to monitor closely. Pedal electrolytes in a.m. to clarify if bicarbonate is stable. Continue bowel regimen; if no improvement overnight will move to Gastrografin enema to exclude mass.
[2018-05-25 17:15] VITALS: PULSE 91; RESP 18; O2SAT 99
--- NOTE | 2018-05-25 22:44 | Discharge Summary ---
Discharge Information Date of admission: 05/22/18 21:25 Anticipated date of discharge: 05/25/18 Attending Physician: Kalyani Perez MD Primary care physician: Willy Mane DO Consults: Consulting Provider: Anuel Sagastume Reason For Exam: ketoacidosis - Discharge Diagnosis (1) Ketoacidosis Status: Acute (2) Diabetes mellitus Status: Chronic Diabetic ketoacidosis Diabetes mellitus, type II-A1c 7.4% 05/15/18 Nausea/vomiting Dehydration Obstipation Hypophosphatemia Polycystic ovarian syndrome Hyperlipidemia - Laboratory Labs: On admission 05/22/18: Hemoglobin 16.8, AB.189/15/113/5.9 on room air. HC03 6, glucose 117, liver enzymes normal, lactic acid 1.1, TSH 0.78 05/25/18 02:13 05/25/18 19:12 - Radiology Radiology: CTA chest pulmonary emboli protocol on 05/22/18: Normal exam-no PE or infiltrate or pleural effusion. KUB on 05/24/18: Nonobstructive/nonspecific bowel gas pattern, increased colonic stool burden. History of Present Illness HPI: This is a 38 y/o female with dm 2 and eczema. She has a history of morbid obesity and over the past years has gone through two stages of loosing almost 100#. Most recently over the past 2 weeks she has been observing a very low carbohydrate diet. She has noted over the past 4 days that she has increased dyspnea. With any activity she gets remarkably tired. She presented to a local urgent care center in [facility] a couple of days ago and the workup was unremakable. (included EKG , labs, and breathing tx). The pateint continued to be short of breath and presents to the ED tonight. The ED did a CT angio of the chest that was neg for acute disease. Labs done demonstrated a remarkable gap metabolic acidosis. The serum BHBA signficantly elevated. Blood sugar was essentially normal. It would appear that the patient's low carbohydrate diet has ppt a starvation ketoacidosis. She will be admitted into the ICU for managment Objective Vital signs: Temperature 97.8 F 05/25/18 07:40 Pulse Rate 91 05/25/18 16:45 Respiratory Rate 18 05/25/18 16:45 Blood Pressure 111/74 05/25/18 11:38 Pulse Oximetry 99 05/25/18 16:45 NAD, alert Conjunctiva clear, sclera anicteric Respirations nonlabored, good airflow progressive clear Regular rhythm, S1-S2 Abdomen soft, mild generalized tenderness without guarding, bowel sounds present Extremities without edema Neuro-moving all extremities well Rhythm: Normal Sinus Rhythm Height/Weight/BMI: Height 1.71 m Weight 105 kg Body Mass Index 35.2 Hospital Course This is a general summary of the patient's hospital course. For more details refer to the complete medical record. Hospital course: 05/23/18 Admitted with ketoacidosis due to ketotic diet/diabetes. Initially treated with fluids/bicarbonate without improvement and subsequently converted to insulin drip and DKA protocol. Late in the day able to transition to oral diet with increased carbohydrate content. Dietary consult initiated. 05/24/18 Dr. Sagastume consulted this morning; I spoke with him after he evaluated the patient described complex development of DKA due to development of ketoacidosis on ketotic diet in conjunction with metformin use with Jardiance precluding development of hyperglycemia due to hyperglucoseurea. Acidosis improved initially with insulin drip but bicarbonate is dropping again the course of the day today and insulin drip is being resumed with standard DKA orders. By mouth meds will be continued-confirmed with Dr. Sagastume. Significant obstipation over the past week reported, may in part be due to dehydration with increased urine output. Continue fiber supplement, Dulcolax suppository tried earlier today with minimal result, fleets enema available for prn use; lactulose being started as needed. Repeat labs per DKA protocol at 8 PM tonight. 05/25/18 Insulin drip resumed yesterday after bicarbonate dropped; improved rapidly overnight and insulin again discontinued this morning. Bicarbonate down slightly this afternoon-continue to monitor closely. Electrolytes repeated earlier this evening and bicarbonate has improved to 19- highest it's been during the hospitalization. Patient had several bowel movements later in the day after repeating magnesium citrate this morning. Need to maintain an aggressive bowel regimen discussed with the patient. Blood sugars have been modestly elevated off the insulin drip and off oral medications with glucoses of 193 and 192 after meals this evening. Resume Jardiance at 25 mg daily. Stable for discharge; have recommended follow-up with Dr. Mane in approximately one week or sooner if any recurrent symptoms. Additionally recommended she discuss chronic constipation at follow-up to determine if additional evaluation will be needed. Time spent with patient: discharge greater than 30 minutes Resuscitation Status: Full Code Discharge Plan - Discharge Disposition Discharge Date: 05/25/18 Disposition: 01 Discharged Home, Self-Care *Condition: Improved Reason For Visit (Visit label in EMR): ketoacidosis,dehydration - Discharge Medications *Discharge Medications: New Sennosides/Docusate Sodium [Senna-S Tablet] 2 each PO DAILY #100 tab PEG 3350 17gm PACKET [Miralax] 17 gm PO BID packet Continue Ondansetron HCl [Zofran] 4 mg PO Q6H PRN PRN Reason: Nausea Multivitamin [One Daily Multivitamin] 1 tab PO DAILY Multivit-Min/Iron/Folic/Nhl934 [Hair, Skin and Nails Tablet] 1 tab PO DAILY Empagliflozin [Jardiance] 25 mg PO DAILY Discontinued Metformin [Glucophage] 1,000 mg PO HS - Discharge Packet/Instructions *Diet: Diabetic diet, avoid strict ketogenic diet due to risk of diabetic ketoacidosis *Activity: As tolerate *Pain Management/Treatment: Ibuprofen or Tylenol as needed-follow package instructions *Wound Care: Not applicable Additional Instructions: Consider regular bowel regimen with a fiber supplement like MiraLAX (or Benefiber or Metamucil) 1-2 times daily in conjunction with Senokot as a bowel stimulant/stool softener--all can be purchased over-the- counter. May need further evaluation of chronic constipation by Dr. Mane. *Expected Signs/Symptoms: You may be more fatigued and achy after hospitalization and the metabolic abnormalities you've experienced, constipation *Notify Physician if: Vomiting, difficulty breathing. *During Business Hours Contact: Dr. Mane's office *After Business Hours Contact: Call [facility] at [phone] and ask that the on-call physician be paged *Pending Lab/Results: No Pending Lab - Referrals/Follow Up *Referrals/Follow Up: Willy Mane DO [Primary Care Provider] - 1 Week - Patient Handouts Patient Handouts: Diabetic Ketoacidosis (GEN) - Dismissal Complete Discharge Instructions are:: Complete Physician Narrative - Narrative Attestation Narrative: Date: 05/25/18 Time: 9810
== END 2018-05-25 20:40 | disposition home or self-care (01) | DRG 639 ==
LOC: ED 15:22 → SUATTDRO 21:25 → EDHOLD 21:25 → CCU 21:35 → MED 05-25 17:00
PROVIDERS: ADMIT Emergency Medicine; ATTEND Internal Medicine

== ENCOUNTER 2018-06-12 16:44 | Observation (INO) ==
[2018-06-12] MEDS ORDERED: SALINE FLUSH 10ml SYRINGE IVF PRN (16:51)
[2018-06-12] MEDS ORDERED: NS 1,000 ML IV ONE (16:51)
--- NOTE | 2018-06-12 16:53 | Emergency Department Report ---
General Adult HPI - General Chief complaint: Medical Emergency Stated complaint: SOA,DKA,low CO2 Time Seen by Provider: 06/12/18 16:51 Source: patient Mode of arrival: ambulatory Limitations: no limitations - History of Present Illness HPI narrative: Patient's 2-year-old female presents emergency room for evaluation of back pain and nausea. Patient had a similar episode to this approximately a month ago was admitted to the hospital for diabetic ketoacidosis. Patient that time was kept on her same medications, acid dumper felt that her medications were not causing the issue. Patient began feeling bad 2 days ago when to see her primary medical physician earlier today who obtained laboratories. Laboratories came back with signs of DKA so patient was referred to the ER for evaluation. - Related Data Home Medications Medication Instructions Recorded Confirmed Ascorbic Acid/Multivit-Min 1,000 mg PO DAILY 06/12/18 06/12/18 [Emergen-C 1,000 mg Packet] Digestive 8/L.acidoph/Pectin 1 each PO DAILY 06/12/18 06/12/18 [Digestive Enzymes Tablet] Multivit-Min/Iron/Folic/Bce964 1 each PO DAILY 06/12/18 06/12/18 [Hair, Skin and Nails Tablet] Multivitamin [One Daily] 1 each PO DAILY 06/12/18 06/12/18 Sennosides [Senokot] 8.6 mg PO DAILY 06/12/18 06/12/18 Glucophage (metformin) 1,000 mg 1,000 mg PO BID 06/20/18 tablet Previous Rx's Medication Instructions Recorded Januvia (sitagliptin) 100 mg tablet 100 mg PO DAILY #30 tab 06/20/18 Zoloft (sertraline) 50 mg tablet 50 mg PO .COMPLEX #60 tab 06/20/18 Allergies Allergy/AdvReac Type Severity Reaction Status Date / Time No Known Allergies Allergy Verified 06/20/18 10:13 Review of Systems Constitutional: Reports: weakness. Denies: fever, chills Eyes: Denies: eye pain, eye discharge, vision change ENT: Denies: ear pain, throat pain, dental pain Cardiovascular: Denies: chest pain, palpitations, dyspnea on exertion, orthopnea Respiratory: Denies: dyspnea, wheezes Gastrointestinal: Reports: abdominal pain. Denies: nausea, vomiting Genitourinary: Denies: dysuria, frequency Musculoskeletal: Denies: back pain Neurological: Denies: headache, weakness, numbness Endocrine: Denies: fatigue Hematological/Lymphatic: Denies: easy bleeding Allergic/Immunologic: Denies: facial swelling PFSH Patient Stated Medical History Diabetes Mellitus Type 2 Yes Other GI Yes: constipation Other Yes: breast biopsy Other Reproductive Yes: heavy menstural cycle Clinic Medical History (Last Reviewed 06/20/18 @ 10:14 by REYNALDO Yarbrough) Eczema (Chronic Medical) Obesity (BMI 30-39.9) (Acute Medical) PCOS (polycystic ovarian syndrome) (Acute Medical) Type 2 diabetes mellitus (Acute Medical) DJD (degenerative joint disease) (Chronic Medical) Surgical History: * Section. *Cholecystectomy. *Left Breast Biopsy ( benign). *EGD. Cholesystectomy Family History: Family History (Last Reviewed 06/20/18 @ 10:14 by REYNALDO Yarbrough) Father Dialysis patient Heart problem Diabetes Maternal Grandfather Hyperlipidemia Heart attack High blood pressure Diabetes - Social History Smoking status: Former smoker second hand exposure: Yes Substance use type: does not use, former substance user, marijuana Alcohol intake: never Alcohol intake frequency: does not drink Housing: house Household members: children Current occupational status: student Physical Exam - General General appearance: alert, in no apparent distress - Head Head exam: normocephalic - ENT ENT exam: Present: normal oropharynx, mucous membranes moist, TM's normal bilaterally - Neck Neck exam: Present: full ROM, trachea midline. Absent: tenderness - Chest Chest inspection: Present: symmetric chest wall rise. Absent: tenderness, rash - Respiratory Respiratory exam: Present: normal lung sounds bilaterally. Absent: respiratory distress, wheezes, stridor - Cardiovascular Cardiovascular exam: Present: regular rate, normal rhythm, normal heart sounds - Abdominal Exam Abdominal exam: Present: soft, distention, normal bowel sounds. Absent: tenderness - Skin Skin exam: Present: warm, dry - Neurological Exam Neurological exam: Present: alert, oriented X3 - Psychiatric Psychiatric exam: Present: normal affect, normal mood Course Vital Signs Temperature 98.3 F 06/12/18 16:47 Pulse Rate 96 06/12/18 16:47 Respiratory Rate 20 06/12/18 16:47 Blood Pressure 136/65 06/12/18 16:47 Pulse Oximetry 99 06/12/18 16:47 Temperature 97.2 F 06/13/18 08:15 Pulse Rate 84 06/13/18 13:00 Respiratory Rate 32 H 06/13/18 13:00 Blood Pressure 120/82 06/13/18 11:48 Pulse Oximetry 99 06/13/18 13:00 Medical Decision Making - MDM Narrative Medical decision making narrative: Discuss case with Dr. Mehta we have both reviewed prior laboratories. He will admit patient to the CCU for DKA - Medical Records Medical records reviewed: Yes: I reviewed the patient's medical records. - Lab Data Lab results reviewed: Yes: I reviewed the patient's lab results. Result diagrams: 06/13/18 04:17 06/13/18 04:17 Lab Results 06/12/18 06/12/18 06/12/18 Range/Units 16:50 17:08 17:08 VBG pH 7.261 L (7.310-7.410) Turbidity < 20 (0-20) Sodium 140 (136-146) MEQ/L Potassium 3.8 (3.6-5) MEQ/L Chloride 112 H (98-107) MEQ/L Carbon Dioxide 14 L (22-30) MEQ/L Anion Gap 14 (5-15) meq/L BUN 11.0 (7-17) MG/DL Creatinine 0.6 L (0.7-1.2) mg/dL Estimated Creat Clear 157 (>50) mL/min GFR Calculation 111 (>60) mL/min BUN/Creatinine Ratio 18 (6-26) RATIO Glucose 150 H (65-110) MG/DL Glucometer 152 (65-110) mg/dL Calculated Osmolality 271 (261-280) MOSM/KG Calcium 8.7 (8.4-10.2) MG/DL Icterus Index < 2 (0-7) Specimen Hemolysis < 15 (0-25) Disposition Clinical Impression: Ketoacidosis Disposition: 02 To [facility] Condition: Stable Time of Disposition: 17:38 - Seen By: physician
[2018-06-12] MEDS ORDERED: ONDANSETRON 4 MG/2 ML INJECTION IVP PRN (17:54)
--- NOTE | 2018-06-12 18:08 | History & Physical Report ---
History of Present Illness Date: 06/12/18 Chief complaint: Nausea, SOA HPI: Ana Jarvis is a 38 year old with type 2 DM. She has been on a low-carb, keto- type diet. She was hospitalized from 05/23-05/25/18 for DKA, and Dr. Sagastume stopped metformin, continued Jardiance 25 mg daily. She reports that she began feeling nauseated and slightly short of breath on 06/09/18. A friend told her that these symptoms could also come from dehydration, so over the next couple of days she pushed fluids. However, her symptoms worsened. She also described some dizziness/lightheadedness, especially with positional changes. She felt weak and fatigued. She has had some headaches and blurred vision. She had labs drawn per Dr. Mane on 06/12/18, showing ketoacidosis with CO2 of 12, gap 18, glucose 154. ABG showed a pH of 7.269. Her last A1c was 7.4% on 05/15/18. She was contacted at home and recommended for her to be evaluated in the ED. A venous pH was 7.261, accucheck 152. She was given 1L of NS. Dr. Donovan was notified , and the patient was admitted to the CCU for treatment of ketoacidosis. Review of Systems All systems PM: 10-point ROS was reviewed, no additional remarkable complaints except - Constitutional Constitutional: Present: headache(s). Absent: chills, fever(s) - EENMT Eyes: Present: blurry vision Nose: Absent: obstruction Mouth/Throat: Absent: sore throat - Cardiovascular Cardiovascular: Absent: palpitations Vascular: Absent: pedal edema - Respiratory Respiratory: Present: dyspnea. Absent: cough - Gastrointestinal Gastrointestinal: Present: nausea. Absent: abdominal pain, diarrhea, vomiting - Genitourinary Genitourinary: Absent: dysuria - Musculoskeletal Musculoskeletal: Present: back pain (low back) - Integumentary/Breasts Integumentary: Absent: rash - Neurological Neurological: Present: dizziness, headache(s), weakness. Absent: abnormal speech, focal weakness, frequent falls, numbness - Psychiatric Psychiatric: Absent: anxiety - Endocrine Endocrine: Absent: palpitations - Hematologic/Lymphatic Hematologic/Lymphatic: Absent: easy bleeding Past Medical History Medical History: Medical History (Last Updated 06/12/18 @ 18:20 by Sunita Lucero APRN) Eczema (Chronic) Obesity (BMI 30-39.9) PCOS (polycystic ovarian syndrome) Type 2 diabetes mellitus DJD (degenerative joint disease) Surgical History: * Section. *Cholecystectomy. *Left Breast Biopsy ( benign). *EGD. *Cholesystectomy Family History: Family History (Last Reviewed 06/12/18 @ 09:50 by Iva Kirkland Ebony) Father Dialysis patient Heart problem Diabetes Maternal Grandfather Hyperlipidemia Heart attack High blood pressure Diabetes Family History: As Above - Social History Smoking status: Former smoker Substance use type: does not use Medications Home Medications Medication Instructions Recorded Confirmed Type Ascorbic Acid/Multivit-Min 1,000 mg PO DAILY 06/12/18 06/12/18 History [Emergen-C 1,000 mg Packet] Digestive 8/L.acidoph/Pectin 1 each PO DAILY 06/12/18 06/12/18 History [Digestive Enzymes Tablet] Multivit-Min/Iron/Folic/Jzg324 1 each PO DAILY 06/12/18 06/12/18 History [Hair, Skin and Nails Tablet] Multivitamin [One Daily] 1 each PO DAILY 06/12/18 06/12/18 History Sennosides [Senokot] 8.6 mg PO DAILY 06/12/18 06/12/18 History Allergies Allergy/AdvReac Type Severity Reaction Status Date / Time No Known Allergies Allergy Verified 06/12/18 09:49 Exam Vital Signs: Temperature 98.3 F 06/12/18 16:47 Pulse Rate 92 06/12/18 17:30 Respiratory Rate 20 06/12/18 16:47 Blood Pressure 135/80 06/12/18 17:30 Pulse Oximetry 100 06/12/18 17:30 Height/Weight/BMI: Height 1.71 m Weight 105.3 kg - Constitutional Present: no acute distress, well nourished, well developed, obese Comments: acetone odor - Routine HEENT Exam Head: Present: normocephalic Eye: Present: PERRL. Absent: conjunctival icterus, scleral injection ENT: Present: mucous membranes moist - Routine Neck Exam Present: supple - Routine Respiratory Exam Present: CTA bilaterally - Routine Cardiovascular Exam Present: RRR, S1, S2 - Routine Abdominal Exam Present: soft, normoactive bowel sounds, non distended, non tender - Routine Extremities Exam Present: no edema, pulses intact. Absent: normal capillary refill - Routine Back/Spine/Pelvis Exam Back/Spine: Present: full ROM - Routine Skin Exam Present: intact, dry, warm - Routine Neurological Exam Present: alert, oriented X3, CN II-XII intact, moving all extremities, vision grossly intact, hearing grossly intact, normal speech. Absent: sensory deficit , motor deficit, altered mental status, facial asymmetry - Routine Psychiatric Exam Present: normal affect, normal thought process, cooperative Results - Labs CBC & Chem 7: 06/12/18 17:08 - ABG Interpretation ABG results: 06/12/18 17:08 VBG pH 7.261 L Assessment and Plan Assessment and Plan: Assessment Diabetic ketoacidosis Diabetes mellitus, type II-A1c 7.4% 05/15/18 Nausea Polycystic ovarian syndrome Hyperlipidemia Plan Admit to the CCU. IVF: D5 1/2NS with KCl @ 125 mL/hr. Follow sugars q1h. Hold off on insulin gtt at this time - Dr. Donovan to order subq insulin. C-peptide pending. Diet: consistent carb. Zofran PRN nausea. Consult Dr. Sagastume in am. Care to be returned to Dr. Mane at time of discharge. Discussed with Dr. Donovan. Prior records reviewed. DVT Prophylaxis: SCD's Resuscitation Status: Full Code - Time spent with patient Time with patient PN: 70 minutes - Physician Narrative Physician: Jarrod Donovan MD Narrative: Date: 06/12/18 Time: 2020 Have independently interviewed and examined pt. Chart reviewed. Case discussed with ED physician and my [employer]. Care plan developed with my supervision; agree with above. Type II DM who has been working very diligently on minimizing carbohydrates to help weight loss and blood sugar control, present to clinic feeling dizziness/ lightheadedness worse with positional changes despite really pushing fluids for the last 2 days. She's felt weak and fatigued. Was seen in clinic due to symptoms - advised by Dr Mane to stop Jardiance as likely contributing to her problems. Lab done, worrisome for developing DKA. Patient hospitalized at the beginning of May with starvation DKA - significant acidosis/ketosis with essentially normal blood sugars. Stopped Metformin post discharge. Evaluated in ED and acidotic with ketones in urine. Given IVF and placed in [facility]BS at [facility]. Lungs: clear CV: regular AB: soft nt/nd MSE: awake alert appropriate Plan: OBS admission. IVF with D51/2NS and 20KCL. Low dose insulin as needed - does not need insulin drip. Monitor lab. Stop Jardiance. Discussed with patient about her low carbohydrate diet -- do feel this is very reasonable to help her diabetic control and facilitate weight loss. Advised not to be 'too aggressive' with the keto diet as really can be detrimental with her diabetes. Depending on how blood sugars do once Jardiance clear system, may need something like Amaryl to simulate more insulin production. Discussed about dietary evaluation, but really round this not helpful at last visit. Hospital Course Summary Disclaimer: The visit summary below is not to be considered part of the above Progress Note. Hospital Course: 06/12/18 Admit to the CCU. IVF: D5 1/2NS with KCl @ 125 mL/hr. Follow sugars q1h. Hold off on insulin gtt at this time - Dr. Donovan to order subq insulin. C-peptide pending. Diet: consistent carb. Zofran PRN nausea. Consult Dr. Sagastume in am.
[2018-06-12] MEDS: D5-1/2NS with KCL 20mEq 1,000 ML IV SCH (18:18)
[2018-06-12 18:27] VITALS: BMI 36.3
[2018-06-12] MEDS ORDERED: ACETAMINOPHEN 325 MG TABLET PO PRN (18:33)
[2018-06-12] MEDS ORDERED: SENNA + DOCUSATE TABLET PO PRN (18:33)
[2018-06-12] MEDS ORDERED: DEXTROSE 50% SYRINGE 50ml (1 AMP) IVP PRN (20:18)
[2018-06-12] MEDS ORDERED: GLUCOSE ORAL GEL 40% 37.5gm PO PRN (20:18)
[2018-06-12] MEDS: IBUPROFEN 800 MG TABLET PO PRN (20:53)
[2018-06-13] MEDS: D5-1/2NS with KCL 20mEq 1,000 ML IV SCH (02:13)
[2018-06-13] MEDS: INSULIN ASPART 100unit/ml INJECTION SQ PRN ×2 (04:19→08:25)
[2018-06-13] MEDS: IBUPROFEN 800 MG TABLET PO PRN (08:28)
[2018-06-13 12:27] VITALS: BP 120/82; TEMP 97.2; O2SAT 99
--- NOTE | 2018-06-13 12:49 | Progress Note ---
- Date 06/13/18 Subjective: F/U: Diabetic ketoacidosis Doing well this morning. No nausea or ab pain. Didn't eat breakfast, but reports does not typically eat until afternoon. Urine output increased with IVF- no difficulty with urination. Breathing well. Ambulating well. No f/c. Objective Vital signs: Temperature 97.2 F 06/13/18 08:15 Pulse Rate 92 06/13/18 12:00 Respiratory Rate 20 06/13/18 12:00 Blood Pressure 120/82 06/13/18 11:48 Pulse Oximetry 99 06/13/18 12:00 Height/Weight/BMI: Height 1.71 m Weight 105.4 kg Body Mass Index 36.3 - Constitutional Present: no acute distress, well nourished, well developed, average body habitus , obese, cooperative - Routine HEENT Exam Head: Present: normocephalic, atraumatic Eye: Present: EOMI, PERRL, normal accommodation ENT: Present: mucous membranes moist - Routine Respiratory Exam Present: CTA bilaterally. Absent: respiratory distress, wheezes, crackles - Routine Cardiovascular Exam Present: RRR, no murmur - Routine Abdominal Exam Present: soft, normoactive bowel sounds, non distended, non tender. Absent: guarding - Routine Extremities Exam Present: no edema, pulses intact. Absent: cyanosis, clubbing - Routine Musculoskeletal Exam Musculoskeletal: Present: no clubbing or cyanosis, normal strength - Routine Skin Exam Present: dry, warm - Routine Neurological Exam Present: alert, oriented X3, CN II-XII intact, moving all extremities, vision grossly intact, hearing grossly intact, normal speech. Absent: motor deficit, altered mental status - Routine Psychiatric Exam Present: normal affect, normal thought process, cooperative Results - Labs CBC & Chem 7: 06/13/18 04:17 06/13/18 04:17 - ABG Interpretation ABG results: 06/12/18 17:08 VBG pH 7.261 L Assessment and Plan (1) DKA (diabetic ketoacidoses) Current visit: No Status: Resolved Assessment and Plan: Assessment Diabetic ketoacidosis Diabetes mellitus, type II-A1c 7.4% 05/15/18 Nausea Polycystic ovarian syndrome Hyperlipidemia Plan DKA resolved. Anion gap normalized, CO2 increasing, Blood sugar showing stability at 137 to 157. IVF stopped this morning. Did meet with school resource officer at Dr Sagastume's request. Pt really not interested in increasing carbohydrate content of diet. Case discuss with Dr Mane (PCP). Reviewed lab result, patients status, her treatment desires. Will stop Jardiance. Likely still seeing some medication effect in helping to lower sugars. Continue off Metformin as per prior discharge recommendations. Potentially could benefit from Amaryl if sugars increase - reinstituting Byetta if sugars dictate. Did discuss at length about potential problems from too severely restricting carbs/calories. Encourage exercise to help build lean muscle and help decrease insulin resistance. Can discharge to home. Continue Low carbohydrate diet. Did encourage patient of having protein source for breakfast to help strength. Activities as tolerated. F/U with Dr Mane in about 1 week, sooner as problems or need indicate. Consider BMP at that time to monitor CO2/Anion gap due to her diet and diabetes. Case discussed with CCU nursing and Dr Mane. Time spent with patient care and discharge greater than 30 minutes. DVT Prophylaxis: SCD's Resuscitation Status: Full Code - Physician Narrative Physician: Jarrod Donovan MD Narrative: Date: 06/13/18 Time: 1245 Hospital Course Summary Disclaimer: The visit summary below is not to be considered part of the above Progress Note. Hospital Course: 06/12/18 Admit to the CCU. IVF: D5 1/2NS with KCl @ 125 mL/hr. Follow sugars q1h. Hold off on insulin gtt at this time - Dr. Donovan to order subq insulin. C-peptide pending. Diet: consistent carb. Zofran PRN nausea. Consult Dr. Sagastume in am. 06/13/18 DKA resolved. Anion gap normalized, CO2 increasing, Blood sugar showing stability at 137 to 157. IVF stopped this morning. Did meet with school resource officer at Dr Sagastume's request. Pt really not interested in increasing carbohydrate content of diet. Case discuss with Dr Mane (PCP). Reviewed lab result, patients status, her treatment desires. Will stop Jardiance. Likely still seeing some medication effect in helping to lower sugars. Continue off Metformin as per prior discharge recommendations. Potentially could benefit from Amaryl if sugars increase - reinstituting Byetta if sugars dictate. Did discuss at length about potential problems from too severely restricting carbs/calories. Encourage exercise to help build lean muscle and help decrease insulin resistance. Can discharge to home. Continue Low carbohydrate diet. Did encourage patient of having protein source for breakfast to help strength. Activities as tolerated. F/U with Dr Mane in about 1 week, sooner as problems or need indicate. Consider BMP at that time to monitor CO2/Anion gap due to her diet and diabetes.
--- NOTE | 2018-06-13 14:03 | Consultation ---
ENDOCRINE CONSULT DATE OF CONSULT: 06/13/2018 DATE OF ADMISSION: 06/12/2018 REASON FOR CONSULTATION: Diabetic ketoacidosis. HISTORY OF PRESENT ILLNESS Ms. Ponce is a 38-year-old female who I saw last month with a similar presentation of diabetic ketoacidosis that developed while following a ketogenic diet. On her previous admission her metformin was discontinued but she was allowed to stay on Jardiance 25 mg daily to control her blood sugars. On 06/09/18 she began to feel nauseated and slightly short of breath. She thought she might be dehydrated so she tried to take in more fluids. However, her symptoms got progressively worse. She also had some dizziness and lightheadedness with positional changes. She felt weak and fatigued. Her vision was a little blurred. On 06/12/[address] Mane and labs came back showing a bicarb of 12, anion gap 18, glucose 154 and blood gas showed pH of 7.27. She was contacted at home and advised to go to the emergency department for evaluation. Her venous pH was 7.26 with an Accu-Chek of 152. She was given 1 liter of normal saline and admitted to the hospitalist service to the CCU. She was treated with some further IV fluid therapy and some subcu insulin and the ketoacidosis rapidly resolved. This morning at the time of my exam she has a CO2 of 15 and anion gap of 12 with the remainder of her metabolic panel showing a hyperchloremic acidosis such as is usually seen after treatment of DKA. ALLERGIES: None known. PAST MEDICAL HISTORY Remarkable for type 2 diabetes mellitus, PCOS, hyperlipidemia, status post C- section and tubal ligation. She checks her blood sugars six times per day. FAMILY HISTORY Remarkable for diabetes mellitus, CHF, chronic kidney disease, hypertension and diverticulosis. SOCIAL HISTORY The patient does not smoke tobacco nor drink alcohol. REVIEW OF SYSTEMS Negative for fever or chills. No retinopathy. She has some dysphagia swallowing bread. Mouth is not dry. She is no longer nauseated. She does have fatigue and some weakness. PHYSICAL EXAMINATION VITALS: Afebrile with stable vital signs. GENERAL: Obese female, alert, oriented and in no acute distress. HEENT: Unremarkable. Oral mucosa is moist. SKIN: Warm and dry. NECK: Without thyromegaly. LUNGS: Clear. HEART: Regular rate and rhythm without murmur. ABDOMEN: Soft, nontender with normal bowel sounds. EXTREMITIES: Without edema. Peripheral pulses are 2+ symmetrically. ADDITIONAL LABS Hemoglobin A1c 7.4 last month. Serum glucose this morning 146. ASSESSMENT 1. Diabetic ketoacidosis, resolved. This once again seems to have been brought on by a her ketogenic diet. It is too risky for her to continue a ketogenic diet although a moderate low calorie diet should be tolerated fine. Once again the Jardiance masked her blood sugars from going higher than they normally would during DKA. This episode was much less severe than her last one when she was also taking metformin. 2. Type 2 diabetes mellitus, in fair control. RECOMMENDATIONS Begin a 1200 calorie consistent carbohydrate diet. I have taken the liberty of asking the dietitian to speak with her about a 1200 calorie diet. If she stays on at least 1000 calories per day she should not become ketotic again. The Jardiance appears to be doing a good job controlling her diabetes so she should continue to take 25 mg daily. However, with these measures in place, if she would develop diabetic ketoacidosis again I would probably opt to discontinue the Jardiance and try a different class drug for her diabetes control. Thank you very much for asking my assistance in caring for this nice woman again. I will continue to follow the patient with you while she remains in the hospital. It is anticipated she will follow up with Dr. Mane as an outpatient. CRAIG
[2018-06-13 14:10] VITALS: PULSE 84; RESP 32
--- NOTE | 2018-06-13 18:47 | Discharge Summary ---
Discharge Information Date of admission: 06/12/18 17:36 Anticipated date of discharge: 06/13/18 Attending Physician: Jarrod Donovan MD Primary care physician: Willy Mane DO Consults: Physician Consult: Anuel Sagastume Reason For Exam: DKA ASSESSMENT 1. Diabetic ketoacidosis, resolved. This once again seems to have been brought on by a her ketogenic diet. It is too risky for her to continue a ketogenic diet although a moderate low calorie diet should be tolerated fine. Once again the Jardiance masked her blood sugars from going higher than they normally would during DKA. This episode was much less severe than her last one when she was also taking metformin. 2. Type 2 diabetes mellitus, in fair control. RECOMMENDATIONS Begin a 1200 calorie consistent carbohydrate diet. I have taken the liberty of asking the dietitian to speak with her about a 1200 calorie diet. If she stays on at least 1000 calories per day she should not become ketotic again. The Jardiance appears to be doing a good job controlling her diabetes so she should continue to take 25 mg daily. However, with these measures in place, if she would develop diabetic ketoacidosis again I would probably opt to discontinue the Jardiance and try a different class drug for her diabetes control. Dietary Consult Comment: 1200 mandy consistent carbohydrate diet Reason For Exam: needs to avoid ketosis - Discharge Diagnosis (1) DKA (diabetic ketoacidoses) Status: Resolved Problems Reviewed?: Yes Discharge diagnosis Diabetic ketoacidosis Associated conditions and complication Diabetes mellitus, type II-A1c 7.4% 05/15/18 Nausea Polycystic ovarian syndrome Hyperlipidemia Obesity with BMI 35.9 - Laboratory Labs: Admit Lab (From Clinic) 06/12/18 10:23 WBC 7.2 Hgb 15.3 Hct 46.9 H MCV 91.4 MCH 29.8 Plt Count 241 Neut % (Auto) 59.2 Lymph % (Auto) 25.2 [place] % (Auto) 7.3 Eos % (Auto) 6.9 H Baso % (Auto) 1.1 Admit Lab (From Clinic) 06/12/18 06/12/18 10:23 10:23 Sodium 145 Potassium 3.9 Chloride 115 H Carbon Dioxide 12 L Anion Gap 18 H BUN 11.0 Creatinine 0.5 L GFR Calculation 137 BUN/Creatinine Ratio 22 Glucose 154 H C-Peptide 1.01 Calculated Osmolality 281 H Calcium 8.7 Admit Lab 06/12/18 17:08 VBG pH 7.261 L UA 06/12/18 17:44 Urine Protein Negative Urine Glucose (UA) 3+ A Urine Ketones 3+ A 06/13/18 04:17 06/13/18 04:17 History of Present Illness HPI: Ana Jarvis is a 38 year old with type 2 DM. She has been on a low-carb, keto- type diet. She was hospitalized from 05/23-05/25/18 for DKA, and Dr. Sagastume stopped metformin, continued Jardiance 25 mg daily. She reports that she began feeling nauseated and slightly short of breath on 06/09/18. A friend told her that these symptoms could also come from dehydration, so over the next couple of days she pushed fluids. However, her symptoms worsened. She also described some dizziness/lightheadedness, especially with positional changes. She felt weak and fatigued. She has had some headaches and blurred vision. She had labs drawn per Dr. Mane on 06/12/18, showing ketoacidosis with CO2 of 12, gap 18, glucose 154. ABG showed a pH of 7.269. Her last A1c was 7.4% on 05/15/18. She was contacted at home and recommended for her to be evaluated in the ED. A venous pH was 7.261, accucheck 152. She was given 1L of NS. Dr. Donovan was notified , and the patient was admitted to the CCU for treatment of ketoacidosis. For complete details of the H&P refer to that document. Objective Vital signs: Temperature 97.2 F 06/13/18 08:15 Pulse Rate 84 06/13/18 13:00 Respiratory Rate 32 H 06/13/18 13:00 Blood Pressure 120/82 06/13/18 11:48 Pulse Oximetry 99 06/13/18 13:00 Height/Weight/BMI: Height 1.71 m Weight 105.4 kg Body Mass Index 36.3 Hospital Course This is a general summary of the patient's hospital course. For more details refer to the complete medical record. Hospital course: 06/12/18 Admit to the CCU. IVF: D5 1/2NS with KCl @ 125 mL/hr. Follow sugars q1h. Hold off on insulin gtt at this time - Dr. Donovan to order subq insulin. C-peptide pending. Diet: consistent carb. Zofran PRN nausea. Consult Dr. Sagastume in am. 06/13/18 DKA resolved. Anion gap normalized, CO2 increasing, Blood sugar showing stability at 137 to 157. IVF stopped this morning. Did meet with supervisor electronics processing at Dr Sagastume's request. Pt really not interested in increasing carbohydrate content of diet. Case discuss with Dr Mane (PCP). Reviewed lab result, patients status, her treatment desires. Will stop Jardiance. Likely still seeing some medication effect in helping to lower sugars. Continue off Metformin as per prior discharge recommendations. Potentially could benefit from Amaryl if sugars increase - reinstituting Byetta if sugars dictate. Did discuss at length about potential problems from too severely restricting carbs/calories. Encourage exercise to help build lean muscle and help decrease insulin resistance. Can discharge to home. Continue Low carbohydrate diet. Did encourage patient of having protein source for breakfast to help strength. Activities as tolerated. F/U with Dr Mane in about 1 week, sooner as problems or need indicate. Consider BMP at that time to monitor CO2/Anion gap due to her diet and diabetes. Time spent with patient: discharge greater than 30 minutes Resuscitation Status: Full Code Discharge Plan - Discharge Disposition Discharge Date: 06/13/18 Disposition: 01 Discharged Home, Self-Care *Condition: Stable Reason For Visit (Visit label in EMR): DKA - Discharge Medications *Discharge Medications: Continue Multivitamin [One Daily] 1 each PO DAILY Ascorbic Acid/Multivit-Min [Emergen-C 1,000 mg Packet] 1,000 mg PO DAILY Digestive 8/L.acidoph/Pectin [Digestive Enzymes Tablet] 1 each PO DAILY Multivit-Min/Iron/Folic/Qcp760 [Hair, Skin and Nails Tablet] 1 each PO DAILY Sennosides [Senokot] 8.6 mg PO DAILY - Discharge Packet/Instructions *Diet: Low carbohydrate diet. Plenty of water. *Activity: As tolerated *Pain Management/Treatment: Continue prior home pain medications. *Wound Care: n/a *Expected Signs/Symptoms: Improvement of glycemic control. Avoidance of DKA. *Notify Physician if: Temp > 100.4. Sugar elevation above 200. Any worrisome symptom. *During Business Hours Contact: Dr Mane. *After Business Hours Contact: Call [facility] and have Dr Mane contacted. *Pending Lab/Results: No Pending Lab - Referrals/Follow Up *Referrals/Follow Up: Willy Mane DO [Primary Care Provider] - 1 Week (F/U for DKA. Recommend rechecking BMP to monitor CO2 and Anion gap. ) - Patient Handouts Patient Handouts: Diabetic Ketoacidosis (DC), Basic Carbohydrate Counting (DC) - Dismissal Complete Discharge Instructions are:: Complete Physician Narrative - Narrative Physician: Jarrod Donovan MD Attestation Narrative: Date: 06/13/18 Time: 1843 I have independently interviewed and examined patient prior to discharge. See my progress note for details. Medically stable for discharge to home.
== END 2018-06-13 14:00 | disposition home or self-care (01) ==
LOC: ED 16:44 → EDHOLD 16:44 → CCU 18:08
PROVIDERS: ADMIT Hospitalist; ATTEND Hospitalist